=== PATIENT | male | born 2005 | race Caucasian/White ===

== ENCOUNTER 2024-12-06 08:10 | Emergency (ER) | payer SELFPAY ==
[2024-12-06 08:17] VITALS: BP 156/90
[2024-12-06 08:19] VITALS: BP 156/90
--- NOTE | 2024-12-06 09:02 | ED.GENMED ---
History of Present Illness
<Radha Sun PA-C - Last Filed: 12/06/24 14:37>
General
Chief Complaint: Musculo-Skeletal Complaint
Source: patient
Exam Limitations: none
Time Seen by Provider: 12/06/24 08:25
History of Present Illness
History of Present Illness:
19yoM with no significant past medical history presenting for evaluation of right foot and great toe pain. Patient dropped a large wooden beam onto his right foot around 5 PM yesterday evening. He initially did not medical care due to lack of
insurance. He is presenting with severe pain primarily to the great toe. He has not taken anything OTC for his symptoms. No paresthesias. Unknown last Tdap.
Past History
<Radha Sun PA-C - Last Filed: 12/06/24 14:37>
Social History
Tobacco: No 2nd hand smoke
Phy Exam
<Radha Sun PA-C - Last Filed: 12/06/24 14:37>
General Physical Exam
General Presentation: well appearing
General Skin: warm and dry
General Habitus: normal
General Mental: alert
ENT Exam
ENT Exam: normocephalic
Neurological Exam
Neurological Exam: alert
Belkis Coma Scale
Eye Opening: Spontaneous
Verbal Response: Oriented
Motor Response: Obeys Commands
GCS Total Score: 15
Musculoskeletal Exam
Musculoskeletal Exam: other (R foot: Complete subungual hematoma noted to great toe with elevation of nail and bleeding around nail. +Diffuse tenderness to toe. No soft tissue swelling noted to dorsum of foot. 2+ DP pulse and sensation intact.)
Skin Exam
Skin Exam: normal color and warm/dry
Psychiatric Exam
Psychiatric Exam: normal mood/affect
Course
<Radha Sun PA-C - Last Filed: 12/06/24 14:37>
Orders/Labs/Results
Orders:
Orders
12/06/24 08:23
Foot, Right 3 View [CR Foot - Right Min 3 Views] Urgent
Comment:
Reason For Exam: 6x6x15 feet board rolled on foot last night
12/06/24 09:02
Oxycodone/Acetaminophen [Percocet 5/325] 1 tablet PO NOW STA
Tetanus/Diphth/Acelpertussis [Adacel] 0.5 ml IM .ONCE ONE
12/06/24 09:51
boot [Ortho Boot Right- Treatment] ONCE
Short or tall?: Short
Cephalexin Monohydrate [Keflex] 500 mg PO NOW STA
Vital Signs
Initial and Last Documented VS:
Initial Vital Signs
Temp Pulse Resp BP Pulse Ox
98.4 F 75 17 156/90 99
12/06/24 08:17 12/06/24 08:17 12/06/24 08:17 12/06/24 08:17 12/06/24 08:17
Last Documented Vital Signs
Temp Pulse Resp BP Pulse Ox
98.4 F 68 16 142/75 98
12/06/24 08:19 12/06/24 11:35 12/06/24 11:35 12/06/24 11:35 12/06/24 11:35
<Matty Andrews MD - Last Filed: 12/06/24 09:16>
Orders/Labs/Results
Orders:
Orders
12/06/24 08:23
Foot, Right 3 View [CR Foot - Right Min 3 Views] Urgent
Comment:
Reason For Exam: 6x6x15 feet board rolled on foot last night
12/06/24 09:02
Oxycodone/Acetaminophen [Percocet 5/325] 1 tablet PO NOW STA
Tetanus/Diphth/Acelpertussis [Adacel] 0.5 ml IM .ONCE ONE
12/06/24 09:51
boot [Ortho Boot Right- Treatment] ONCE
Short or tall?: Short
Cephalexin Monohydrate [Keflex] 500 mg PO NOW STA
Vital Signs
Initial and Last Documented VS:
Initial Vital Signs
Temp Pulse Resp BP Pulse Ox
98.4 F 75 17 156/90 99
12/06/24 08:17 12/06/24 08:17 12/06/24 08:17 12/06/24 08:17 12/06/24 08:17
Last Documented Vital Signs
Temp Pulse Resp BP Pulse Ox
98.4 F 68 16 142/75 98
12/06/24 08:19 12/06/24 11:35 12/06/24 11:35 12/06/24 11:35 12/06/24 11:35
Procedures
<Radha Sun PA-C - Last Filed: 12/06/24 14:37>
Other
Indication for procedure:: R great toe subungual hematoma
Procedure completed by: Radha Sun PA-C
Additional Procedure:
Verbal consent obtained. Digital block performed. Nail removed with hemostat and blunt dissection. Patient tolerated well.
<Radha Sun PA-C - Last Filed: 12/06/24 14:37>
MDM/Problems Addressed
Differential Diagnosis Includes:
19yoM here with a R foot injury after dropping a wooden beam last night. Subungual hematoma noted to R great toe with elevation of the nail bed. No other obvious injuries to the foot. Differential diagnosis includes: subungual hematoma, fracture
Decision was made to remove nail as nail has already lifted and trephination is unlikely to provide any significant relief. Digital block performed and nail removed without difficulty. Toe irrigated extensively and dressing placed. Patient started
on a course of Keflex for possible fracture on my interpretation of foot x-rays although after discharge, radiology report is negative for fractures. Walking boot given. Patient instructed to f/u with podiatry and return to the ER with any signs of
infection. Patient discharged in stable condition.
<Radha Sun PA-C - Last Filed: 12/06/24 14:37>
*Pulse Oximetry
SaO2: 98
Oxygen Mode of Delivery: Room air
Patient hypoxic: no
*Critical Care Note
Total Time (30-74mins, 75-104mins- exclusive of procedures): Not Applicable
ED Attending Note
<Radha Sun PA-C - Last Filed: 12/06/24 14:37>
-
Portions of this chart may have been created with voice recognition software.� Occasional wrong word or��sound alike� substitutions may have occurred due to the inherent limitations of voice recognition software.
<Matty Andrews MD - Last Filed: 12/06/24 09:16>
ED Attending Note
Patient seen and examined by attending physician: Yes
I performed the substantive portion of visit, reviewed & personally made and approve the management plan that is documented in note by myself or WILFRID.: Yes
ED Attending Note:
Patient smashed his toe last evening with a large board.
On exam there is bleeding around the nail of the great toe with swelling of the great toe. Subungual blood.
The nail is partially disconnected from the nailbed. Feel trepidation would be of no benefit as there is bleeding around the nail currently. I feel it is best to remove the nail irrigate well trim the nail if possible cover with antibiotics to
follow-up.
Discharge Plan
Departure
Patient Disposition: Home (Routine Discharge)
Date of Disposition: 12/06/24
Time of Disposition: 09:52
Patient with high blood pressure during this ER visit?: Yes
Discharge Problem:
Subungual hematoma of great toe of right foot, Open fracture of great toe of right foot
Instructions: Bruising Under the Nail
Prescriptions:
New
cephalexin 500 mg capsule
500 mg PO Q6H 7 Days Qty: 27 0RF
oxycodone 5 mg tablet
5 mg PO Q6H PRN (Reason: Pain) Qty: 12 0RF
No Action
prednisolone sodium phosphate 15 MG/5 ML solution
15 mg PO DAILY 4 Days Qty: 60 0RF
amoxicillin 400 MG/5 ML suspension for reconstitution
1,200 mg PO Q12 Qty: 210 0RF
gentamicin 1 DROP drops
1 drp ophthalmic (eye) QID Qty: 1 0RF
Referrals:
Jay Jean Baptiste MD [Family Provider, Family Practice]
Malik Prasad DPM [Specified Professional Personl, Podiatry]
Activity Restrictions/Additional Instructions:
Wear walking boot. Take antibiotics as prescribed. Change wound dressings daily.
Take Tylenol and ibuprofen as needed for pain. Take oxycodone only as needed for severe breakthrough pain.
Please call tomorrow to schedule a follow-up appointment with podiatry. Return to the ER with any signs of infection.
Interventions
Interventions:
*Risk Screen - Suicide Last Done: 12/06/24 08:19
*General Assessment Last Done: 12/06/24 09:51
*Neglect/Abuse Screening Last Done: 12/06/24 08:19
*ED- Fall Risk Assessment Last Done: 12/06/24 09:51
*Nursing Disposition Last Done: 12/06/24 11:35
ED-Musculoskeletal Assessment Last Done: 12/06/24 09:51
Discharge Date and Time
Discharge Date/Time: 12/06/24 10:30
Print Language: GABONESE
[2024-12-06] MEDS: PERCOCET 5/325 1 TABLET PO (09:20)
[2024-12-06] MEDS: ADACEL 0.5 ML IM (09:22)
[2024-12-06] MEDS: KEFLEX 500 MG PO (10:31)
[2024-12-06 11:35] VITALS: BP 142/75
== END 2024-12-06 10:30 | disposition home or self-care (01) ==
LOC: EMR 08:10
PROVIDERS: EMERGENCY PHYSICIAN Emergency Medicine; FAMILY PHYSICIAN Family Medicine
DX: S92.401B Displaced unspecified fracture of right great toe, initial encounter for open fracture (principal); S90.211A Contusion of right great toe with damage to nail, initial encounter; W20.8XXA Other cause of strike by thrown, projected or falling object, initial encounter; Z59.71 Insufficient health insurance coverage; Z23 Encounter for immunization
CPT/HCPCS: 11730; 90471; 99283; 73630; 90715